=== PATIENT | male | born 1960 | race Caucasian/White ===

== ENCOUNTER 2021-06-29 08:20 | Day surgery (SDC) | payer BC ==
[2021-06-27 11:37] VITALS: BMI 25.4
[~2021-06-29 08:20] MED LIST: LACTATED RINGERS 1,000 ML IV SCH
[2021-06-29 08:53] VITALS: TEMP 97.6
[2021-06-29] MEDS ORDERED: PROPOFOL 10 MG/ML 20 ML VIAL IV ONE (09:03)
--- NOTE | 2021-06-29 09:07 | P.GSHP ---
History of Present Illness H&P Date: 06/29/21 Chief Complaint: Screening colonoscopy This is a 60-year-old male presents today for screening colonoscopy. Patient denies a significant GI complaints. Past Medical History Past Medical History: Asthma, Hyperlipidemia, Hypertension, Pneumonia, Prostate Disorder Additional Past Medical History / Comment(s): ASTHMA (CHILD).,BPH, ENVIRONMENTAL ALLERGIES. History of Any Multi-Drug Resistant Organisms: None Reported Past Surgical History: Hernia Repair Additional Past Surgical History / Comment(s): COLONOSCOPY, CATARINA INGUINAL HERNIA (2004). Past Anesthesia/Blood Transfusion Reactions: No Reported Reaction Past Psychological History: No Psychological Hx Reported Smoking Status: Never smoker Past Alcohol Use History: Rare Past Drug Use History: None Reported - Past Family History Father Family Medical History: Cancer Additional Family Medical History / Comment(s): KIDNEY CANCER Medications and Allergies Home Medications Medication Instructions Recorded Confirmed Type Aspirin [Adult Low Dose Aspirin EC] 81 mg PO DAILY 06/27/21 06/27/21 History Cholecalciferol [Vitamin D3 (25 50 mcg PO DAILY 06/27/21 06/27/21 History Mcg = 1000 Iu)] Doxazosin [Cardura] 1 mg PO HS 06/27/21 06/27/21 History Loratadine [Claritin] 10 mg PO DAILY 06/27/21 06/27/21 History Multivit-Min/FA/Lycopen/Lutein 1 each PO DAILY 06/27/21 06/27/21 History [Centrum Silver Men Tablet] Simvastatin [Zocor] 20 mg PO HS 06/27/21 06/27/21 History Allergies Allergy/AdvReac Type Severity Reaction Status Date / Time No Known Allergies Allergy Verified 06/29/21 08:44 Surgical - Exam Vital Signs Temp Pulse Resp BP Pulse Ox 97.6 F 89 20 167/97 98 06/29/21 08:52 06/29/21 08:52 06/29/21 08:52 06/29/21 08:52 06/29/21 08:52 - General well developed, well nourished, no distress - Eyes PERRL - ENT normal pinna - Neck no masses - Respiratory normal expansion - Cardiovascular Rhythm: regular - Abdomen Abdomen: soft, non tender Assessment and Plan Assessment: We'll perform screening colonoscopy
--- NOTE | 2021-06-29 09:20 | P.OP ---
Date of Procedure: 06/29/21 Preoperative Diagnosis: Screening colonoscopy Postoperative Diagnosis: Normal colon Procedure(s) Performed: Colonoscopy Anesthesia: MAC Surgeon: Ilia Mckee Pathology: none sent Condition: stable Disposition: PACU Description of Procedure: PROCEDURE: The patient was placed on the endoscopy table in the lateral position. Digital rectal examination was performed which revealed no abnormalities. The prostate was symmetrical without nodules. Flexible colonoscope was then placed in the patient's anus and passed throughout the entire colon. The ileocecal valve was visualized. The cecum, ascending, transverse, descending and sigmoid colon were normal. The rectum was normal as well. There were no masses, polyps or diverticula noted in the entire colon. SUMMARY OF FINDINGS: Normal colonoscopy.
[2021-06-29 09:38] VITALS: BP 153/84; PULSE 75; RESP 20
== END 2021-06-29 09:54 | disposition home or self-care (01) ==
LOC: ORWHC2ENDO 08:20
PROVIDERS: ATTEND Surgery
DX: Z12.11 Encounter for screening for malignant neoplasm of colon (principal); J45.909 Unspecified asthma, uncomplicated; E78.5 Hyperlipidemia, unspecified; I10 Essential (primary) hypertension; Z80.51 Family history of malignant neoplasm of kidney; Z79.82 Long term (current) use of aspirin; Z79.899 Other long term (current) drug therapy
CPT/HCPCS: 45378; J2704